=== PATIENT | female | born 2000 | race Caucasian/White ===

== ENCOUNTER → 2021-07-17 19:42 | Observation (INO) ==
[2021-07-17 17:49] LABS: Amorphous Sediment,Urine Few per hpf (None-Few); Bacteria,Urine Few per hpf (None-Few); Bilirubin,Urine Negative (Negative); Blood,Urine Negative (Negative); Clarity,Urine Turbid (Clear); Color,Urine Yellow (Yellow); Glucose,Urine (UA) Normal (Normal); Ketones,Urine 10 mg/dL (Negative); Leukocyte Esterase,Urine Large (Negative); Mucus,Urine Few per lpf (None-Few); Nitrite,Urine Negative (Negative); PH,Urine 7.5 pH Units (5.0-8.0); Protein,Urine 70 mg/dL (Neg-Trace); RBC,Urine TNTC per hpf (0-3); Specific Gravity,Urine 1.026 (1.010-1.025); Squamous Epithelial Cell,Urine Moderate per hpf (None-Few); Transitional Epi Cells,Urine Few per hpf (None-Few); WBC,Urine TNTC per hpf (0-3)
[2021-07-17 18:47] LABS: Candida DNA Not Detected (Not Detect); Gardnerella DNA Not Detected (Not Detect); Trichomonas DNA DETECTED (Not Detect)
[~2021-07-17 19:42] MED LIST: *HR* Nalbuphine 10 MG/ML AMPUL IV ONE; Ringers Solution, Lactated 1,000 ML IVC ONE; Ringers Solution, Lactated 1,000 ML ONE
== END | disposition home or self-care (01) ==
LOC: 1NENULAB
PROVIDERS: ADMIT Registered Nurse; ATTEND Registered Nurse

== ENCOUNTER 2021-07-25 17:51 | Inpatient (IN) ==
[2021-07-25 15:02] LABS: Bacteria,Urine Few per hpf (None-Few); Bilirubin,Urine Negative (Negative); Blood,Urine Trace (Negative); Clarity,Urine Turbid (Clear); Color,Urine Light-Yellow (Yellow); Glucose,Urine (UA) Normal (Normal); Ketones,Urine Negative (Negative); Leukocyte Esterase,Urine Large (Negative); Mucus,Urine Few per lpf (None-Few); Nitrite,Urine Negative (Negative); PH,Urine 6.5 pH Units (5.0-8.0); Protein,Urine Trace mg/dL (Neg-Trace); RBC,Urine 30-50 per hpf (0-3); Specific Gravity,Urine 1.009 (1.010-1.025); Squamous Epithelial Cell,Urine Moderate per hpf (None-Few); Trichomonas,Urine Present per hpf (None Seen); Urobilinogen,Urine Normal (Normal); WBC,Urine TNTC per hpf (0-3)
[2021-07-25 16:26] LABS: Basophils % 0.2 %; Eosinophils # 0.1 K/mcL (0.0-0.6); Eosinophils % 0.4 %; Hematocrit 32.2 % (35.3-44.9); Immature Granulocytes % 1.2 % (0-4); Lymphocytes # 2.8 K/mcL (0.6-4.6); Lymphocytes % 22.1 %; Mean Corpuscular HGB Conc 34.2 g/dL (31.6-35.5); Mean Corpuscular Hemoglobin 32.4 pg (28.0-33.3); Mean Corpuscular Volume 94.7 fL (83.0-100.0); Mean Platelet Volume 11.8 fL (9.4-12.4); Monocytes % 8.1 %; Neutrophils # 8.5 K/mcL (1.6-8.9); Platelet Count 269 K/mcL (140-400); Red Cell Distribution Width 13.1 % (11.5-14.5); White Blood Count 12.5 K/mcL (4.3-11.1)
[2021-07-25 17:02] LABS: Alanine Aminotransferase 7 Units/L (7-52); Aspartate Amino Transferase 12 Units/L (13-39); Blood Urea Nitrogen 8 mg/dL (6-20); Lactate Dehydrogenase 137 Units/L (140-271); Uric Acid 2.8 mg/dL (2.3-7.6)
[~2021-07-25 17:51] MED LIST changes: -*HR* Nalbuphine 10 MG/ML AMPUL IV ONE; +*HR* Nalbuphine 10 MG/ML AMPUL IV PRN; +EPHEDrine 50 MG/ML VIAL IVP PRN; +Famotidine 20 MG/2 ML VIAL IVP PRN; +Metoclopramide 10 MG/2 ML VIAL IVP PRN; +Naloxone 0.4 MG/ML INJ IVP PRN; +Ondansetron 4 MG/2 ML VIAL IVP PRN; -Ringers Solution, Lactated 1,000 ML IVC ONE; +Ringers Solution, Lactated 1,000 ML IVC SCH; -Ringers Solution, Lactated 1,000 ML ONE; +metroNIDAZOLE 500 MG TABLET PO ONE
[2021-07-25 18:11] LABS: Amphetamine Screen,Urine Negative ng/mL (Cutoff=1000); Barbiturate Screen,Urine Negative ng/mL (Cutoff=200); Benzodiazepines Screen,Urine Negative ng/mL (Cutoff=200); Cannabinoid Screen,Urine Negative ng/mL (Cutoff = 50); Cocaine Screen,Urine Negative ng/mL (Cutoff= 300); Opiate Screen,Urine Negative ng/mL (Cutoff=300); Phencyclidine Screen,Urine Negative ng/mL (Cutoff=25); Protein/Creatinine Ratio,Urine 0.25 mg/mg (0.00-0.20)
[2021-07-25] MEDS ORDERED: Penicillin G Potassium 5,000,000 UNIT in 0.9 % Sodium Chloride Mini Bag 100 ML IVPB ONE (18:11)
[2021-07-25] MEDS: Epidural Premix (fent/bupiv) 110 ML EP SCH (18:34)
[2021-07-25 18:40] LABS: Influenza A PCR Negative (Negative); Influenza B PCR Negative (Negative); Resp. Syncytial Virus PCR Negative (Negative)
[2021-07-25 18:48] LABS: SARS-CoV-2 by PCR (In House) Negative (Negative)
[2021-07-25] MEDS: Penicillin G Potassium 2,500,000 UNIT/105 ML MLS IVPB SCH (22:48)
[2021-07-26] MEDS ORDERED: Lidocaine/EPI 1:200k 2% PF 20 ML VIAL ONE (01:26)
[2021-07-26] MEDS ORDERED: Ropivacaine/PF 0.2% 20 ML VIAL ONE (01:26)
[2021-07-26] MEDS ORDERED: *HR* FentaNYL (PF) 100 MCG/2 ML VIAL ONE (01:26)
[2021-07-26] MEDS: Epidural Premix (fent/bupiv) 110 ML EP SCH (01:39)
[2021-07-26] MEDS: Penicillin G Potassium 2,500,000 UNIT/105 ML MLS IVPB SCH (02:46)
[2021-07-26] MEDS ORDERED: Oxytocin 20 units/ LR 1000 mL 20 UNIT/1,000 ML BAG IVC ONE (04:29)
[2021-07-26] MEDS ORDERED: Benzocaine/Menthol 56 GM AEROSOL SPRAY TP PRN (06:19)
[2021-07-26] MEDS ORDERED: Lanolin 7 G OINT...G. TP PRN (06:19)
[2021-07-26] MEDS ORDERED: Ondansetron ODT 4 MG TAB.RAPDIS SL PRN (06:19)
[2021-07-26] MEDS ORDERED: Oxytocin 20 units/ LR 1000 mL 20 UNIT/1,000 ML BAG IVC SCH (06:19)
[2021-07-26] MEDS: *HR* OxyCODONE Immed Rel 5 MG TABLET PO PRN ×2 (07:03→11:39)
[2021-07-26] MEDS: Ibuprofen 600 MG TABLET PO SCH ×2 (08:52→17:05)
[2021-07-26] MEDS: Prenatal Vit/FA 1 EACH TABLET PO SCH (08:52)
[2021-07-26] MEDS: Acetaminophen 325 MG TABLET PO SCH (21:58)
[2021-07-27] MEDS: Ibuprofen 600 MG TABLET PO SCH ×2 (02:03→07:38)
[2021-07-27 07:11] VITALS: BP 120/84; PULSE 95; TEMP 97.9; O2SAT 100
[2021-07-27] MEDS: Prenatal Vit/FA 1 EACH TABLET PO SCH (07:39)
[2021-07-27] MEDS: Acetaminophen 325 MG TABLET PO SCH (07:39)
== END 2021-07-27 12:59 | disposition home or self-care (01) | DRG 560 ==
LOC: 1NENULAB → 1NENUOBS 07-26 07:33
PROVIDERS: ADMIT Advanced Practice Midwife; ATTEND Advanced Practice Midwife